=== PATIENT | female | born 1950 | race Caucasian/White ===

== ENCOUNTER 2018-01-18 13:27 | Outpatient (CLI) | payer MEDICARE, BC | END 2018-01-18 13:28 | disposition home or self-care (01) | LOC: BICRAD 13:27 | PROVIDERS: ATTEND Physician Assistant | DX: R05 Cough (principal) | CPT/HCPCS: 71046 ==

== ENCOUNTER 2018-05-06 15:43 | Outpatient (CLI) | payer MEDICARE, BC | END 2018-05-06 15:44 | disposition home or self-care (01) | LOC: BICMAMMO 15:43 | PROVIDERS: ATTEND Obstetrics & Gynecology | DX: Z12.31 Encounter for screening mammogram for malignant neoplasm of breast (principal); Z80.3 Family history of malignant neoplasm of breast | CPT/HCPCS: 77063; 77067 ==

== ENCOUNTER 2021-06-28 11:14 | Outpatient (CLI) | payer MEDICARE, BC ==
[2021-06-29 00:06] LABS: SARS-CoV-2 PCR by NAA Not Detected (NotDetected)
== END 2021-06-28 11:15 | disposition home or self-care (01) ==
LOC: LABBT 11:14
PROVIDERS: ATTEND Urology
DX: Z01.818 Encounter for other preprocedural examination (principal); N20.0 Calculus of kidney; Z20.822 Contact with and (suspected) exposure to COVID-19
CPT/HCPCS: 93005; U0003; U0005; 93010

== ENCOUNTER 2021-07-02 09:06 | Day surgery (SDC) | payer MEDICARE, BC ==
[2021-07-01 11:18] VITALS: BMI 23.3
[2021-07-02] MEDS ORDERED: Levofloxacin 500 mg/D5W 100 ml Premix Bag ONE (09:50)
[2021-07-02] MEDS ORDERED: Iothalamate Meglumine 60% 30 ML VIAL FS ONE (11:51)
[2021-07-02] MEDS ORDERED: Fentanyl 100 MCG/2 ML VIAL ONE (11:59)
[2021-07-02] MEDS ORDERED: Dexamethasone 20 MG/5 ML VIAL ONE (12:21)
[2021-07-02] MEDS ORDERED: Ketorolac Tromethamine 30 MG/ML VIAL ONE ×2 (12:21→13:08)
[2021-07-02] MEDS ORDERED: Lidocaine 1% PF 5 ML VIAL ONE (12:21)
[2021-07-02] MEDS ORDERED: Ondansetron PF 4 MG/2 ML Vial ONE (12:21)
[2021-07-02] MEDS ORDERED: PROPOFOL 200 MG/20 ML VIAL ONE (12:21)
[2021-07-02] MEDS ORDERED: Phenazopyridine HCl 100 MG TAB ONE (13:08)
[2021-07-02] MEDS ORDERED: Oxybutynin 5 MG TAB ONE (13:09)
[2021-07-06 11:10] LABS: CA Oxalate Dihydrate 30 % (.); CA Oxalate Monohydrate 70 % (.); Color Brown (.); Stone Weight 98 mg (.)
== END 2021-07-02 14:45 | disposition home or self-care (01) ==
LOC: SDC 09:06
PROVIDERS: ATTEND Urology
PROC: 0TC48ZZ Extirpation of Matter from Left Kidney Pelvis, Via Natural or Artificial Opening Endoscopic (ICD-10-PCS; principal; 2021-07-02)
PROC: 0T778DZ Dilation of Left Ureter with Intraluminal Device, Via Natural or Artificial Opening Endoscopic (ICD-10-PCS; 2021-07-02)
DX: N20.0 Calculus of kidney (principal); K21.9 Gastro-esophageal reflux disease without esophagitis; E30.9 Disorder of puberty, unspecified; Z79.83 Long term (current) use of bisphosphonates; Z79.899 Other long term (current) drug therapy; Z88.0 Allergy status to penicillin; Z88.1 Allergy status to other antibiotic agents
CPT/HCPCS: 52356; 74420; 82365; C2617; 88300; J1100; J1885; J1956; J2405; J2704; J3010

== ENCOUNTER 2022-08-18 11:21 | Inpatient (IN) | payer MEDICARE, BC ==
[2022-08-18 12:01] LABS: #Lymphocytes 1.8 thou/uL (1.20-3.40); #Monocytes 0.7 thou/uL (0.11-0.59); #Neutrophils 4.7 thou/uL (1.40-6.50); %Lymphocytes 25.4 % (21.0-51.0); %Monocytes 9.9 % (0.0-10.0); %Neutrophils 64.6 % (42.0-75.0); Hemoglobin 12.6 g/dL (12.0-16.0); Mean Corpuscular HGB CONC 33.1 g/dL (32.0-36.0); Mean Corpuscular Hemoglobin 32.2 pg (27.0-31.0); Mean Corpuscular Volume 97.3 fL (78.0-98.0); Platelet Count 251 thou/uL (130-400); RBC Distribution Width 11.9 % (11.5-14.5); Red Blood Cell (RBC) Count 3.93 mill/uL (4.20-5.40); White Blood Cell (WBC) Count 7.2 thou/uL (4.8-10.8)
[2022-08-18 12:11] LABS: PTT 29.6 sec (22.9-36.1); Prothrombin Time 13.4 sec (12.0-14.7)
[2022-08-18 12:19] LABS: ALT (SGPT) 13 U/L (8-55); AST (SGOT) 18 U/L (5-34); Albumin 3.9 g/dL (3.4-4.8); Alkaline Phosphatase 50 U/L (40-110); Anion Gap 12 mmol/L (10-20); BUN (Urea Nitrogen) 9 mg/dL (9.8-20.1); Bilirubin, Total 0.6 mg/dL (0.2-1.2); Calc. Creatinine Clearance 0 mL/min (70-130); Calcium 8.5 mg/dL (7.8-10.44); Carbon Dioxide 28 mmol/L (23-31); Estimated GFR 68; Globulin 3.1 g/dL (2.4-3.5); Glucose 100 mg/dL (83-110); Potassium 4.4 mmol/L (3.5-5.1); Sodium 135 mmol/L (136-145)
[2022-08-18] MEDS ORDERED: diphenhydrAMINE 50 MG/ML VIAL ONE (12:19)
[2022-08-18] MEDS ORDERED: Acetaminophen 500 MG TAB ONE (12:19)
[2022-08-18] MEDS ORDERED: niCARdipine 25 MG/10 ML VIAL ONE (12:19)
[2022-08-18] MEDS ORDERED: diphenhydrAMINE 50 MG/ML VIAL IVP SCH (12:30)
[2022-08-18] MEDS ORDERED: Prochlorperazine 10 MG/2 ML VIAL IVP SCH (12:30)
[2022-08-18] MEDS ORDERED: niCARdipine 25 MG in Sodium Chloride 0.9% 250 ML 250 ML IVPB SCH (12:30)
[2022-08-18 12:43] LABS: Chloride 99 mmol/L (98-107)
[2022-08-18] MEDS ORDERED: Iopamidol-370 76% 500 ML 1 ML ONE (14:33)
[2022-08-18] MEDS ORDERED: Aspirin Chewable 81 MG TAB ONE (14:47)
[2022-08-18 18:11] VITALS: BMI 22.4
[2022-08-18] MEDS ORDERED: HYDROcodone/Acetaminophen 10/325 mg Tablet PO PRN (18:51)
[2022-08-18] MEDS ORDERED: Senokot S 8.6-50 MG TAB PO PRN (18:51)
[2022-08-18] MEDS ORDERED: Acetaminophen 325 MG TAB PO PRN (18:51)
[2022-08-18] MEDS ORDERED: Zolpidem Tartrate 5 MG TAB PO PRN (18:51)
[2022-08-18] MEDS ORDERED: HYDROcodone/Acetaminophen 7.5/325 mg Tablet PO PRN (18:51)
[2022-08-18] MEDS ORDERED: Ondansetron ODT 4 MG TAB PO PRN (18:51)
[2022-08-18] MEDS ORDERED: Loperamide HCl 2 MG CAP PO PRN (18:51)
[2022-08-18] MEDS ORDERED: Labetalol HCl 100 MG/20 ML VIAL SLOW IVP PRN (18:56)
[2022-08-18] MEDS ORDERED: ALPRAZolam 0.25 MG TAB PO PRN (18:58)
[2022-08-18] MEDS ORDERED: Non-Formulary Item 1 EACH (Albuterol Sulfate [Proair Digihaler] 90 MCG Aer.Pw.Bas) INH PRN (20:03)
[2022-08-18] MEDS ORDERED: Albuterol Sulfate 2.5 mg/3 ml Neb NEB PRN (20:12)
[2022-08-18] MEDS: Calcitriol 0.25 MCG CAP PO SCH (20:26)
[2022-08-18] MEDS: Famotidine/PF 20 mg/2ml Vial SLOW IVP SCH (20:27)
[2022-08-18] MEDS ORDERED: PROGESTERONE TD SCH (21:00)
[2022-08-18] MEDS ORDERED: Non-Formulary Item 1 EACH (Lovastatin [Lovastatin] 20 MG Tablet) PO SCH (21:00)
[2022-08-18 21:16] LABS: Bacteria/HPF None Seen HPF (None Seen); Bilirubin Negative (Negative); Blood, Urine Negative (Negative); Clarity Clear (Clear); Glucose, Urine (Dipstick) Normal (Negative); Ketone, Urine Trace mg/dL (Negative); Leukocyte Negative Leu/uL (Negative); Nitrite Negative (Negative); Protein, Urine (Dipstick) Negative (Neg-Trace); RBC/HPF 0-3 HPF (0-3); Specific Gravity, Urine 1.012 (1.002-1.036); Squamous Epithelial 0-3 HPF (0-3); Urobilinogen Normal mg/dL (Less than 2); WBC/HPF 0-3 HPF (0-3); pH, Urine 7.5 (5.0-9.0)
[2022-08-19 04:50] LABS: #Lymphocytes 1.9 thou/uL (1.20-3.40); #Monocytes 0.8 thou/uL (0.11-0.59); #Neutrophils 3.3 thou/uL (1.40-6.50); %Basophils 0.8 % (0.0-1.0); %Lymphocytes 30.7 % (21.0-51.0); %Neutrophils 54.5 % (42.0-75.0); Hemoglobin 12.1 g/dL (12.0-16.0); Mean Corpuscular HGB CONC 33.4 g/dL (32.0-36.0); Mean Corpuscular Hemoglobin 32.4 pg (27.0-31.0); Mean Corpuscular Volume 97.1 fL (78.0-98.0); Mean Platelet Volume 7.8 fL (7.4-10.4); Platelet Count 262 thou/uL (130-400); Red Blood Cell (RBC) Count 3.73 mill/uL (4.20-5.40)
[2022-08-19 05:39] LABS: Anion Gap 11 mmol/L (10-20); BUN (Urea Nitrogen) 7 mg/dL (9.8-20.1); Calc. Creatinine Clearance 57 mL/min (70-130); Calcium 7.6 mg/dL (7.8-10.44); Carbon Dioxide 26 mmol/L (23-31); Chloride 104 mmol/L (98-107); Cholesterol 162 mg/dl (< 200 Desired); Estimated GFR 70; Glucose 93 mg/dL (83-110); HDL Cholesterol 54 mg/dL (>60 Neg Risk); LDL Cholesterol, Calculated 93 mg/dL; Potassium 3.4 mmol/L (3.5-5.1); Sodium 138 mmol/L (136-145); Triglycerides 76 mg/dL (Less than 150)
[2022-08-19] MEDS ORDERED: Levothyroxine Sodium 100 MCG TAB PO SCH (06:00)
[2022-08-19] MEDS ORDERED: Electrolyte Replacement Protocol 1 EACH FS SCH (06:15)
[2022-08-19 07:54] LABS: Magnesium 1.7 mg/dL (1.6-2.6)
[2022-08-19] MEDS ORDERED: Potassium Chloride 20 MEQ TAB PO SCH (08:00)
[2022-08-19] MEDS: Famotidine/PF 20 mg/2ml Vial SLOW IVP SCH (08:42)
[2022-08-19] MEDS: Calcitriol 0.25 MCG CAP PO SCH (08:42)
[2022-08-19] MEDS ORDERED: Enoxaparin Sodium 30 MG/0.3 ML SYRINGE SC SCH (09:00)
[2022-08-19] MEDS ORDERED: Fluticasone Propionate Nasal Spray 16 gm Bottle NASAL SCH (09:00)
[2022-08-19] MEDS ORDERED: Azelastine 137 MCG/Spray 30 ML NS PRN (09:00)
[2022-08-19] MEDS ORDERED: ALPRAZolam 0.25 MG TAB PO SCH (09:00)
[2022-08-19] MEDS ORDERED: Loratadine 10 MG TAB PO SCH (09:00)
[2022-08-19] MEDS ORDERED: Magnesium 2 GM/50 ML(in water) 2 GM in Premix Bag 1 BAG IVPB SCH (10:00)
[2022-08-19 15:35] VITALS: TEMP 97.1
[2022-08-19 15:45] VITALS: BP 150/85
[2022-08-19] MEDS ORDERED: Simvastatin 10 MG TAB PO SCH (17:00)
[2022-08-21] MEDS ORDERED: FLU VACC QS2022-23(65YR UP)/PF 240 MCG/0.7 ML SYRINGE IM ONE (09:00)
== END 2022-08-19 16:09 | disposition home or self-care (01) | DRG 305 ==
LOC: ERS 11:21 → ERHOLD 15:09 → NEURO 17:18
PROVIDERS: ADMIT Family Medicine; ATTEND Internal Medicine
DX: I16.1 Hypertensive emergency (principal); I10 Essential (primary) hypertension; E03.9 Hypothyroidism, unspecified; J45.909 Unspecified asthma, uncomplicated; Z88.1 Allergy status to other antibiotic agents; Z88.0 Allergy status to penicillin; Z20.822 Contact with and (suspected) exposure to COVID-19; Z79.899 Other long term (current) drug therapy; Z79.890 Hormone replacement therapy; Z85.848 Personal history of malignant neoplasm of other parts of nervous tissue; Z96.641 Presence of right artificial hip joint; Z28.311 Partially vaccinated for COVID-19; Z98.890 Other specified postprocedural states; E78.5 Hyperlipidemia, unspecified
CPT/HCPCS: 36415; 70450; 70496; 70498; 70551; 71045; 80048; 80053; 80061; 81001; 83735; 84443; 84484; 85025; 85610; 85730; 87040; 93005; 94760; 95712; 95819; 95957; J0780; J1200; J1650; J3475; Q9967; S0028; U0003; U0005

== ENCOUNTER 2024-12-20 13:35 | Outpatient (CLI) | payer MEDICARE, BC ==
[2024-12-20 15:51] LABS: #Basophils Less than 0.03 10x3/uL (0.0-0.2); #Eosinophils Less than 0.03 10x3/uL (0.0-0.7); %Basophils 0.1 % (0.0-1.0); %Lymphocytes 21.3 % (21.0-51.0); %Monocytes 10.9 % (0.0-10.0); %Neutrophils 67.6 % (42.0-75.0); Hematocrit 39.2 % (36.0-47.0); Hemoglobin 12.7 g/dL (12.0-16.0); Mean Corpuscular HGB CONC 32.4 g/dL (32.0-36.0); Mean Corpuscular Volume 92.5 fL (78.0-98.0); Mean Platelet Volume 10.1 fL (7.4-10.4); Platelet Count 346 10x3/uL (130-400); RBC Distribution Width 12.4 % (11.5-14.5); Red Blood Cell (RBC) Count 4.24 mill/uL (4.20-5.40)
[2024-12-20 16:10] LABS: INR-International Normal Ratio 1.1; Prothrombin Time 13.8 sec (12.0-14.7)
[2024-12-20 16:12] LABS: Anion Gap 14 mmol/L (10-20); BUN (Urea Nitrogen) 10 mg/dL (9.8-20.1); Calc. Creatinine Clearance 0 mL/min (70-130); Calcium 8.9 mg/dL (7.8-10.44); Carbon Dioxide 28 mmol/L (23-31); Chloride 101 mmol/L (98-107); Estimated GFR 74; Glucose 110 mg/dL (83-110); Potassium 3.9 mmol/L (3.5-5.1); Sodium 139 mmol/L (136-145)
== END 2024-12-20 13:36 | disposition home or self-care (01) ==
LOC: LABBT 13:35
PROVIDERS: ATTEND Urology
DX: Z01.812 Encounter for preprocedural laboratory examination (principal); N20.1 Calculus of ureter
CPT/HCPCS: 80048; 85025; 85610; 85730; 87086

== ENCOUNTER 2024-12-26 06:04 | Day surgery (SDC) | payer MEDICARE, BC ==
[2024-12-20 14:16] VITALS: BMI 24.2
[2024-12-26] MEDS ORDERED: Vancomycin 1 GM/200 ML (FROZEN) BAG ONE (07:24)
[2024-12-26] MEDS ORDERED: cefTRIAXone (ROCEPHIN) 1 GM VIAL ONE (07:24)
[2024-12-26] MEDS ORDERED: Sodium Chloride 0.9% 100 ML ONE (07:26)
[2024-12-26] MEDS ORDERED: Iopamidol 30 ML ONE (07:26)
[2024-12-26] MEDS ORDERED: Rocuronium Bromide 10 MG/ML (10ML VIAL) ONE (07:34)
[2024-12-26] MEDS ORDERED: Lidocaine 2% PF 5 ML VIAL ONE (07:34)
[2024-12-26] MEDS ORDERED: Famotidine/PF 20 mg/2ml Vial ONE (07:35)
[2024-12-26] MEDS ORDERED: PROPOFOL 200 MG/20 ML VIAL ONE (07:49)
[2024-12-26] MEDS ORDERED: Ondansetron PF 4 MG/2 ML Vial ONE (07:56)
[2024-12-26] MEDS ORDERED: Dexamethasone 4 mg/ml Vial ONE (07:56)
[2024-12-26] MEDS ORDERED: PHENYLEPHRINE-NS 100 MCG/ML 10 ML SYRINGE ONE (08:04)
[2024-12-26] MEDS ORDERED: ePHEDrine Sulfate 50 MG/10 ML VIAL ONE (08:17)
[2024-12-26] MEDS ORDERED: SUGAMMADEX SODIUM 200 MG/2 ML VIAL ONE (08:34)
== END 2024-12-26 11:20 | disposition home or self-care (01) ==
LOC: SDC 06:04
PROVIDERS: ATTEND Urology
PROC: 0TC08ZZ Extirpation of Matter from Right Kidney, Via Natural or Artificial Opening Endoscopic (ICD-10-PCS; principal; 2024-12-26)
PROC: 0T768DZ Dilation of Right Ureter with Intraluminal Device, Via Natural or Artificial Opening Endoscopic (ICD-10-PCS; 2024-12-26)
DX: N20.2 Calculus of kidney with calculus of ureter (principal); E78.5 Hyperlipidemia, unspecified; E03.9 Hypothyroidism, unspecified; K21.9 Gastro-esophageal reflux disease without esophagitis; I82.409 Acute embolism and thrombosis of unspecified deep veins of unspecified lower extremity; Z86.73 Personal history of transient ischemic attack (TIA), and cerebral infarction without residual deficits; Z96.641 Presence of right artificial hip joint; Z98.41 Cataract extraction status, right eye; Z98.42 Cataract extraction status, left eye; Z90.89 Acquired absence of other organs; Z88.0 Allergy status to penicillin; Z88.1 Allergy status to other antibiotic agents; Z79.890 Hormone replacement therapy; Z79.01 Long term (current) use of anticoagulants; Z79.899 Other long term (current) drug therapy
CPT/HCPCS: 52356; 74420; 82365; C1747; C1769; C2617; J0696; J1100; J2405; J3370; J3490; Q9967; 88300; J2704